=== PATIENT | female | born 1975 | race African-American/Black ===

== ENCOUNTER 2018-04-30 15:28 | Emergency (ER) | payer OTHER ==
[~2018-04-30] VITALS: Ht 162.6 cm; Wt 63.5 kg
[2018-04-30] MEDS ORDERED: NAPROSYN500 MG PO (18:18)
[2018-04-30 18:23] VITALS: BP 141/79
== END 2018-04-30 18:24 | disposition home or self-care (01) ==
LOC: ER 15:28
DX: L72.8 Other follicular cysts of the skin and subcutaneous tissue (principal)